=== PATIENT | female | born 1960 | race Two or more races ===

== ENCOUNTER 2021-11-10 11:38 | Inpatient (IN) | payer OTHER ==
[~2021-11-10] VITALS: Ht 154.9 cm; Wt 136.0 kg
[2021-11-10 17:19] LABS: Basophils # (auto) 0.1 10 ^3/uL (0-0.2); Basophils % (auto) 0.8 % (0.0-2.0); Eosinophils # (auto) 0.2 10 ^3/uL (0-0.8); Hematocrit 32.6 % (36.0-46.0); Hemoglobin 10.8 g/dL (12.2-16.2); Lymphocytes # (auto) 1.6 10 ^3/uL (0.4-5.4); Lymphocytes % (auto) 22.5 % (10.0-50.0); Mean Corpuscular Hemoglobin 33.3 pg (28.0-32.0); Mean Corpuscular Volume 100.8 fL (80.0-100.0); Monocytes # (auto) 0.5 10 ^3/uL (0-1.3); Monocytes % (auto) 6.7 % (0.0-12.0); Neutrophils # (auto) 4.8 10 ^3/uL (1.6-8.6); Nucleated Red Blood Cells % 0.2 %; Red Blood Cells 3.24 10^6/uL (4.0-5.20); Red Cell Distribution Width 15.3 % (11.8-14.3); White Blood Cell 7.2 10^3/uL (4.4-10.8)
[2021-11-10 17:23] LABS: Calcium 9.2 mg/dL (8.5-10.1); Potassium 4.6 mmol/L (3.5-5.1)
[2021-11-10 17:31] LABS: BUN/Creatinine Ratio 31.9
[2021-11-10 18:01] LABS: INR 1.05 (0.9-1.15); Partial Thromboplastin Time 25.1 sec (23.6-33.0)
[2021-11-10] MEDS: MORPHINE SULFATE INJECTION 2 MG/ML SYRG IV PRN (21:52)
[2021-11-10 22:00] VITALS: BP 132/57
[2021-11-10 22:56] VITALS: BP 132/57
[2021-11-10] MEDS ORDERED: GABA-339 PO (23:15)
[2021-11-10] MEDS ORDERED: ALEN70TA2 PO (23:15)
[2021-11-10] MEDS ORDERED: NAP500T PO (23:15)
[2021-11-10] MEDS ORDERED: METH2.5T PO (23:15)
[2021-11-10] MEDS ORDERED: MULT1TAB28 PO (23:15)
[2021-11-10] MEDS ORDERED: LORA-622 PO (23:15)
[2021-11-10] MEDS ORDERED: ALBUAER3 IN (23:15)
[2021-11-10] MEDS ORDERED: FERR-20 PO (23:15)
[2021-11-10] MEDS ORDERED: FOLI1TAB6 PO (23:15)
[2021-11-10] MEDS ORDERED: PAR20T PO (23:15)
[2021-11-10] MEDS ORDERED: HYDR-4798 PO (23:15)
[2021-11-10] MEDS ORDERED: OYST500T28 PO (23:15)
[2021-11-10] MEDS ORDERED: CHOL20007 PO (23:15)
[2021-11-11] MEDS: MORPHINE SULFATE INJECTION 2 MG/ML SYRG IV PRN ×3 (02:16→20:40)
[2021-11-11 05:00] VITALS: BP 105/50
[2021-11-11 05:59] LABS: Eosinophils # (auto) 0.2 10 ^3/uL (0-0.8); Lymphocytes # (auto) 1.5 10 ^3/uL (0.4-5.4); Monocytes # (auto) 0.5 10 ^3/uL (0-1.3); White Blood Cell 5.2 10^3/uL (4.4-10.8)
[2021-11-11 06:00] LABS: Basophils # (auto) 0.1 10 ^3/uL (0-0.2); Eosinophils % (auto) 4.1 % (0.0-7.0); Hematocrit 28.3 % (36.0-46.0); Hemoglobin 9.8 g/dL (12.2-16.2); Lymphocytes % (auto) 29.5 % (10.0-50.0); Mean Corpuscular Hemoglobin 34.4 pg (28.0-32.0); Mean Corpuscular Hgb Conc. 34.5 g/dL (32.0-36.0); Mean Corpuscular Volume 99.7 fL (80.0-100.0); Neutrophils # (auto) 2.9 10 ^3/uL (1.6-8.6); Neutrophils % (auto) 55.4 % (37.0-80.0); Nucleated Red Blood Cells % 0.2 %; Red Blood Cells 2.84 10^6/uL (4.0-5.20)
[2021-11-11 06:16] LABS: Albumin 2.9 g/dL (3.4-5.0); Calcium 8.4 mg/dL (8.5-10.1); Potassium 4.3 mmol/L (3.5-5.1)
[2021-11-11 06:19] LABS: BUN/Creatinine Ratio 27.3; Bilirubin, Total 0.7 mg/dL (0.2-1.0); Total Protein 5.7 g/dL (6.4-8.2)
[2021-11-11 09:00] VITALS: BP 124/66
[2021-11-11] MEDS ORDERED: SUCCINYLCHOLINE CHLORIDE 20 MG/ML 10ML VIAL IV ONE (09:16)
[2021-11-11] MEDS ORDERED: MIDAZOLAM HCL 2MG/2ML 2ml VIAL (1mg/ml) ONE (09:20)
[2021-11-11] MEDS ORDERED: fentaNYL CITRATE 100 MCG/2 ML VL ONE (09:21)
[2021-11-11] MEDS ORDERED: BUPIVACAINE W/ EPINEPH 0.25% INJ 50ML MDV ONE (09:44)
[2021-11-11] MEDS ORDERED: ceFAZolin 1GM/50ML 100 ML IV ONE ×2 (09:48→20:37)
[2021-11-11] MEDS ORDERED: HYDROmorphone HCL 2 MG/ML VL/or syr ONE ×2 (10:12→10:55)
[2021-11-11] MEDS ORDERED: METOCLOPRAMIDE HCL 5MG/ml INJ 2ml VIAL IV ONE (10:54)
[2021-11-11] MEDS ORDERED: DexAMETHasone SOD PHOS 10MG/1ML VIAL INJ IV ONE (10:54)
[2021-11-11] MEDS: HYDROmorphone HCL 2 MG/ML VL/or syr IV PRN ×4 (10:57→11:27)
[2021-11-11] MEDS ORDERED: METOCLOPRAMIDE HCL 5MG/ml INJ 2ml VIAL IV PRN (11:00)
[2021-11-11] MEDS ORDERED: fentaNYL CITRATE 100 MCG/2 ML VL IV PRN (11:00)
[2021-11-11 13:00] VITALS: BP 115/72
[2021-11-11] MEDS ORDERED: ceFAZolin 2 GM in D5W 5% 100 ML IV SCH ×3 (14:00→20:00)
[2021-11-11 17:00] VITALS: BP 136/58
[2021-11-11] MEDS: ceFAZolin 2 GM in D5W 5% 100 ML IV SCH (21:00)
[2021-11-11 22:00] VITALS: BP 120/53
[2021-11-12] MEDS: MORPHINE SULFATE INJECTION 2 MG/ML SYRG IV PRN ×4 (00:25→12:18)
[2021-11-12 05:00] VITALS: BP 107/41
[2021-11-12] MEDS: ceFAZolin 2 GM in D5W 5% 100 ML IV SCH (05:14)
[2021-11-12 06:13] LABS: Calcium 8.9 mg/dL (8.5-10.1); Chloride 106 mmol/L (98-107); Potassium 4.6 mmol/L (3.5-5.1); Sodium 141 mmol/L (136-145)
[2021-11-12 06:17] LABS: Anion Gap 5 (5-15); Blood Urea Nitrogen 13 mg/dL (7-18); Carbon Dioxide 30 mmol/L (21-32); GFR African American 93 mL/min; GFR Non-African American 77 mL/min; Glucose 119 mg/dL (74-106)
[2021-11-12 07:23] LABS: Basophils # (auto) 0 10 ^3/uL (0-0.2); Basophils % (auto) 0.4 % (0.0-2.0); Eosinophils # (auto) 0 10 ^3/uL (0-0.8); Eosinophils % (auto) 0.3 % (0.0-7.0); Hematocrit 35.5 % (36.0-46.0); Hemoglobin 11.6 g/dL (12.2-16.2); Lymphocytes % (auto) 16.7 % (10.0-50.0); Mean Corpuscular Hgb Conc. 32.6 g/dL (32.0-36.0); Mean Corpuscular Volume 101.4 fL (80.0-100.0); Monocytes # (auto) 0.9 10 ^3/uL (0-1.3); Monocytes % (auto) 7.9 % (0.0-12.0); Neutrophils # (auto) 8.9 10 ^3/uL (1.6-8.6); Neutrophils % (auto) 74.7 % (37.0-80.0); Nucleated Red Blood Cells % 0.5 %; White Blood Cell 11.9 10^3/uL (4.4-10.8)
[2021-11-12 08:05] VITALS: BP 124/60
[2021-11-12] MEDS ORDERED: ALBUTEROL SULF HFA 90MCG INH 200DOSE IN SCH (12:15)
[2021-11-12] MEDS ORDERED: NAPROXEN 500 MG TAB PO SCH (12:15)
[2021-11-12] MEDS ORDERED: cefTRIAXone 1GM/50ML D5W 50 ML IV ONE (12:15)
[2021-11-12 12:25] VITALS: BP 133/62
[2021-11-12] MEDS ORDERED: ENOXAPARIN SOD 40 MG/0.4 ML SYRINGE SC ONE (12:30)
[2021-11-12] MEDS: GABAPENTIN 300 MG CAP PO SCH ×2 (14:00→22:00)
[2021-11-12] MEDS: HYDROcodone-ACET 10/325MG TAB PO SCH ×2 (15:00→20:14)
[2021-11-12 16:10] VITALS: BP 121/50
[2021-11-12 22:00] VITALS: BP 101/40
[2021-11-13] MEDS: MORPHINE SULFATE INJECTION 2 MG/ML SYRG IV PRN ×2 (01:08→11:55)
[2021-11-13 05:00] VITALS: BP 111/53
[2021-11-13] MEDS: GABAPENTIN 300 MG CAP PO SCH ×3 (06:00→21:47)
[2021-11-13 09:00] VITALS: BP 122/52
[2021-11-13] MEDS: cefTRIAXone 1GM/50ML D5W 50 ML IV SCH (09:00)
[2021-11-13] MEDS: PARoxetine 20 MG TAB PO SCH (09:28)
[2021-11-13] MEDS: HYDROcodone-ACET 10/325MG TAB PO SCH ×3 (09:28→20:05)
[2021-11-13] MEDS: ENOXAPARIN SOD 40 MG/0.4 ML SYRINGE SC SCH (09:29)
[2021-11-13 12:54] VITALS: BP 116/71
[2021-11-13 13:42] LABS: Basophils # (auto) 0.1 10 ^3/uL (0-0.2); Basophils % (auto) 0.8 % (0.0-2.0); Eosinophils # (auto) 0.2 10 ^3/uL (0-0.8); Eosinophils % (auto) 3.5 % (0.0-7.0); Hematocrit 32.2 % (36.0-46.0); Hemoglobin 10.4 g/dL (12.2-16.2); Lymphocytes # (auto) 1.7 10 ^3/uL (0.4-5.4); Lymphocytes % (auto) 24.4 % (10.0-50.0); Mean Corpuscular Hemoglobin 32.7 pg (28.0-32.0); Mean Corpuscular Hgb Conc. 32.5 g/dL (32.0-36.0); Mean Corpuscular Volume 100.6 fL (80.0-100.0); Monocytes # (auto) 0.8 10 ^3/uL (0-1.3); Monocytes % (auto) 10.8 % (0.0-12.0); Neutrophils # (auto) 4.2 10 ^3/uL (1.6-8.6); Neutrophils % (auto) 60.5 % (37.0-80.0); Nucleated Red Blood Cells % 0.5 %; Red Cell Distribution Width 14.4 % (11.8-14.3)
[2021-11-13 13:57] LABS: BUN/Creatinine Ratio 16.9; Potassium 4.3 mmol/L (3.5-5.1)
[2021-11-13 14:33] LABS: Urine Bacteria FEW /hpf (None Seen); Urine Blood Negative /uL (Negative); Urine Specific Gravity 1.013 (1.001-1.035); Urine WBC 6 /hpf (0 - 5)
[2021-11-13 17:00] VITALS: BP 126/57
[2021-11-13 21:50] VITALS: BP 132/57
[2021-11-14] MEDS: MORPHINE SULFATE INJECTION 2 MG/ML SYRG IV PRN ×2 (04:44→11:23)
[2021-11-14 04:52] VITALS: BP 111/54
[2021-11-14] MEDS: GABAPENTIN 300 MG CAP PO SCH (05:35)
[2021-11-14 05:40] LABS: Basophils # (auto) 0 10 ^3/uL (0-0.2); Basophils % (auto) 0.7 % (0.0-2.0); Eosinophils # (auto) 0.3 10 ^3/uL (0-0.8); Eosinophils % (auto) 4.5 % (0.0-7.0); Hematocrit 34.9 % (36.0-46.0); Hemoglobin 11.3 g/dL (12.2-16.2); Lymphocytes # (auto) 2.4 10 ^3/uL (0.4-5.4); Lymphocytes % (auto) 39.3 % (10.0-50.0); Mean Corpuscular Hemoglobin 33.2 pg (28.0-32.0); Mean Corpuscular Hgb Conc. 32.5 g/dL (32.0-36.0); Mean Corpuscular Volume 102.3 fL (80.0-100.0); Monocytes # (auto) 0.6 10 ^3/uL (0-1.3); Neutrophils # (auto) 2.7 10 ^3/uL (1.6-8.6); Neutrophils % (auto) 45.5 % (37.0-80.0); Nucleated Red Blood Cells % 0.1 %; Red Blood Cells 3.41 10^6/uL (4.0-5.20); Red Cell Distribution Width 14.2 % (11.8-14.3)
[2021-11-14 09:00] VITALS: BP 120/69
[2021-11-14] MEDS: PARoxetine 20 MG TAB PO SCH (10:11)
[2021-11-14] MEDS: ENOXAPARIN SOD 40 MG/0.4 ML SYRINGE SC SCH (10:11)
[2021-11-14] MEDS: HYDROcodone-ACET 10/325MG TAB PO SCH (10:11)
[2021-11-14] MEDS: cefTRIAXone 1GM/50ML D5W 50 ML IV SCH (10:11)
[2021-11-14 12:05] VITALS: BP 117/71
[2021-11-14] MEDS ORDERED: LEVO750T8 PO (12:28)
== END 2021-11-14 14:33 | disposition home or self-care (01) | DRG 315 ==
LOC: ER 11:38 → OVERFLOW 19:40 → WEST WING 20:14
PROVIDERS: ADMIT Registered Nurse; ATTEND Internal Medicine Pulmonary Disease
PROC: B31 Imaging, Upper Arteries, Fluoroscopy (ICD-10-PCS; 2021-11-11)
PROC: 0PSH04Z Reposition Right Radius with Internal Fixation Device, Open Approach (ICD-10-PCS; principal; 2021-11-11 09:48)
DX: S52.531A Colles' fracture of right radius, initial encounter for closed fracture (principal); E88.09 Other disorders of plasma-protein metabolism, not elsewhere classified; E66.01 Morbid (severe) obesity due to excess calories; G47.30 Sleep apnea, unspecified; G62.9 Polyneuropathy, unspecified; M81.0 Age-related osteoporosis without current pathological fracture; Z20.822 Contact with and (suspected) exposure to COVID-19; W01.0XXA Fall on same level from slipping, tripping and stumbling without subsequent striking against object, initial encounter; N39.0 Urinary tract infection, site not specified; B96.20 Unspecified Escherichia coli [E. coli] as the cause of diseases classified elsewhere; Z82.0 Family history of epilepsy and other diseases of the nervous system; Z68.43 Body mass index [BMI] 50.0-59.9, adult; Y93.89 Activity, other specified; Y92.89 Other specified places as the place of occurrence of the external cause; Y99.8 Other external cause status
CPT/HCPCS: 36415; 71045; 73060; 73090; 80048; 80053; 81001; 85025; 85610; 85730; 86850; 86900; 86901; 87040; 87081; 87086; 87088; 87186; 93005; 97163; G0378; J0330; J0690; J0696; J1100; J2250; J7060